=== PATIENT | female | born 1965 | race Caucasian/White ===

== ENCOUNTER → 2016-11-24 | Outpatient (CLI) | payer OTHER ==
[~2016-11-24] MED LIST: BENADRYL25 M1 PO; FOLIC ACID1 MG PO; LEVOTHYROXINE PO; MOBIC15 MG PO; NEURONTIN100 MG PO; PHENERGAN PO; PROTONIX PO; SIMVASTATIN20 MG PO
--- NOTE | ~2016-11-24 | MY11 ---
[facility] A Service of [facility] RADIOLOGY TEXT RESULTS PATIENT: YOANDY STALLWORTH LOCATION: [facility] : 65 UNIT #: [id number] AGE: [address]: Jalen Villarreal MD SEX: F ORDER DR: [id number] [facility] [address]. [place], [place] [address] [id number] O MR#: [id number] Acc #: [id number] NAME: YOANDY STALLWORTH : 1965 SEX: F STUDY DATE/TIME: 11/24/2016 10:54 UNIT: [facility] ROOM: STUDY DESCRIPTION: MY Mammogram Screening [facility] [place] Attending Physician: Jalen Villarreal M.D. Referring Physician: Jalen Villarreal M.D. Ordering Physician: Jalen Villarreal M.D. Primary Care Physician: Jalen Villarreal M.D. MEDICAL IMAGING REPORT This report is preliminary unless electronic signature is present EXAM Digital screening mammogram, 11/24/2016, [facility]. HISTORY 51 -year-old woman baseline mammogram. Positive family history, mother age 74. COMPARISON None. TECHNIQUE Digital imaging of each breast was completed utilizing screening protocol. Review includes FDA-approved CAD device. FINDINGS Breast parenchyma is fatty replaced. There is no breast mass. There are no suspicious microcalcifications and no architectural deformity. IMPRESSION Negative baseline mammogram. Annual screening recommended. Patients over the age of 40 are entered into a reminder system with target due date for the next mammogram. A result letter will also be sent to the patient. BIRADS: 1 Negative Dictated by... Pablo Bernabe M.D. THIS IS AN ELECTRONICALLY VERIFIED REPORT [facility] A Service [facility] RADIOLOGY TEXT RESULTS PATIENT: YOANDY STALLWORTH LOCATION: [facility] : 65 UNIT #: [id number] AGE: [address]: Jalen Villarreal MD SEX: F ORDER DR: Pablo Bernabe M.D. at 11/24/2016 2:43 PM BRADEN/fausto TD: 11/24/2016 14:24 JOB #: [id number] MEDICAL IMAGING REPORT COPY
== END | disposition home or self-care (01) ==
LOC: CWCC 10:33
DX: Z12.31 Encounter for screening mammogram for malignant neoplasm of breast (principal); Z80.3 Family history of malignant neoplasm of breast
CPT/HCPCS: G0202

== ENCOUNTER → 2017-01-05 | Day surgery (SDC) | payer OTHER ==
--- NOTE | ~2017-01-05 | OR ---
Unit #: [id number] #: [id number] Patient: YOANDY STALLWORTH [id number] [address] [address] [id number] O MR#: [id number] NAME: YOANDY STALLWORTH ROOM: Date of Procedure: 01/05/2017 Admission Date: 01/05/2017 Surgeon: Fredi Acosta M.D. : 1965 Attending Physician: Fredi Acosta M.D. Primary Care Physician: Jalen Jacob M.D. OPERATIVE REPORT JOB NOTE: CC: DR. JACOB PREOPERATIVE DIAGNOSIS Screening colonoscopy. POSTOPERATIVE DIAGNOSIS Screening colonoscopy. PROCEDURE PERFORMED Colonoscopy to cecum. ANESTHESIA Monitored anesthesia care. FINDINGS The patient was found to have sigmoid diverticular disease as well as internal hemorrhoids. SPECIMENS None. COMPLICATIONS None apparent. CONDITION The patient tolerated the procedure well. INDICATIONS FOR PROCEDURE The patient is a 51-year-old white female who presents at this time for screening colonoscopy. DESCRIPTION OF PROCEDURE After obtaining informed consent, the patient was brought to the endoscopy suite and after adequate monitored anesthesia care, I had the colonoscope placed through the anus and slowly advanced to the level of the cecum without difficulty with lumen always in view. The cecum was normal as was the ileocecal valve. The ascending colon was normal as was the hepatic flexure, transverse colon, splenic flexure, and descending colon. The sigmoid colon had scattered diverticulosis present mostly numerous of 5 to 10 cm segment. The rectosigmoid and rectum were all within normal limits. On retroflexing in the rectum to the anorectal junction, there was some mild to moderate internal hemorrhoids. The scope was removed without Unit #: [id number] #: [id number] Patient: YOANDY STALLWORTH difficulty and on digital examination, there was good sphincter tone. No masses palpable. The patient went from the endoscopy suite to recovery area in stable condition. RECOMMENDATIONS Diverticular sheet given, high-fiber diet, lots of liquids, tucks or wipes p.r.n. Follow up p.r.n. Dictated by... [place] Veronica/bolivar TD: 01/05/2017 14:25 JOB #: [id number] CC: [facility] OPERATIVE REPORT Page 1 of 1 X Fredi Acosta MD PROCEDURE OPERATIVE NOTE
== END | disposition home or self-care (01) ==
LOC: COPS 11:06
PROVIDERS: Surgery
PROC: 0DJD8ZZ Inspection of Lower Intestinal Tract, Via Natural or Artificial Opening Endoscopic (ICD-10-PCS; principal; 2017-01-05 12:30)
DX: Z12.11 Encounter for screening for malignant neoplasm of colon (principal); K57.30 Diverticulosis of large intestine without perforation or abscess without bleeding; K64.8 Other hemorrhoids; E03.9 Hypothyroidism, unspecified; Z90.49 Acquired absence of other specified parts of digestive tract; M25.50 Pain in unspecified joint; Z79.899 Other long term (current) drug therapy; Z82.49 Family history of ischemic heart disease and other diseases of the circulatory system; Z87.09 Personal history of other diseases of the respiratory system; E78.5 Hyperlipidemia, unspecified
CPT/HCPCS: J2250